=== PATIENT | male | born 1950 | race Two or more races ===

== ENCOUNTER 2020-05-02 12:34 | Emergency (ER) | payer OTHER ==
[~2020-05-02] VITALS: Ht 180.3 cm; Wt 109.8 kg
[2020-05-02] MEDS ORDERED: VYTORIN 10-101 EACH PO (12:59)
[2020-05-02] MEDS ORDERED: ATACAND4 MG PO (12:59)
[2020-05-02] MEDS ORDERED: HUMALOG100 UNIT/2 SQ (13:00)
[2020-05-02] MEDS ORDERED: HUMULIN N100 UNIT/2 SQ (13:00)
== END 2020-05-02 16:12 | disposition home or self-care (01) ==
LOC: ER 12:34
DX: E11.649 Type 2 diabetes mellitus with hypoglycemia without coma (principal); Z03.818 Encounter for observation for suspected exposure to other biological agents ruled out; R42 Dizziness and giddiness; R53.81 Other malaise; Z79.4 Long term (current) use of insulin